=== PATIENT | male | born 1985 | race Caucasian/White ===

== ENCOUNTER 2018-02-13 14:22 | Emergency (ER) | payer BC ==
[2018-02-13 15:06] VITALS: BP 103/60
--- NOTE | 2018-02-13 15:07 | CPEKG ---
Test Reason : OPEN Blood Pressure : / mmHG Vent. Rate : 091 BPM Atrial Rate : 088 BPM P-R Int : 156 ms QRS Dur : 101 ms QT Int : 372 ms P-R-T Axes : 041 -01 030 degrees QTc Int : 458 ms Sinus rhythm Confirmed by Darrin Lin ([id number]) on 02/13/2018 3:06:23 PM Referred By: Confirmed By:Darrin Lin
[2018-02-13 15:36] LABS: PLATELET COUNT 243 10^3/uL (150-400)
--- NOTE | 2018-02-13 15:37 | EDPHY ---
H & P Stated Complaint: syncope, cough Time Seen by Provider: 02/13/18 14:34 HPI/ROS: CHIEF COMPLAINT: Chronic cough HISTORY OF PRESENT ILLNESS: The patient presents to the ED with a one-week history of a chronic cough. Today at work the patient had a physically severe coughing episode and experienced syncope. The patient denies any fever. He denies asymmetric calf pain or swelling. The patient denies pleuritic chest pain. He reports his cough is mildly productive. The patient does report some nasal congestion and rhinorrhea. The patient reports a history of asthma and remote history of pneumonia. The patient reports he saw his primary care provider who gave him a prescription for antibiotics and inhaler. He is using the inhaler twice a day. He reports no recent history of prednisone usage. REVIEW OF SYSTEMS: A comprehensive 10 point review of systems is otherwise negative aside from elements mentioned in the history of present illness. Source: Patient - Personal History Current Tetanus Diphtheria and Acellular Pertussis (TDAP): Yes - Medical/Surgical History Hx Asthma: Yes Hx Chronic Respiratory Disease: No Hx Diabetes: No Hx Cardiac Disease: No Hx Renal Disease: No Hx Cirrhosis: No Hx Alcoholism: No Hx HIV/AIDS: No Hx Splenectomy or Spleen Trauma: No Other PMH: asthma, pneumonia - Social History Smoking Status: Never smoked - Physical Exam Exam: General Appearance: Alert, no distress Eyes: Pupils equal and round no pallor or injection ENT, Mouth: Mucous membranes moist Respiratory: There are no retractions, lungs are clear to auscultation Cardiovascular: Regular rate and rhythm Gastrointestinal: Abdomen is soft and nontender, no masses, bowel sounds normal Neurological: A&O, normal motor function, normal sensory exam, normal cranial nerves Skin: Warm and dry, no rashes Musculoskeletal: Neck is supple nontender Extremities: symmetrical, full range of motion Psychiatric: Patient is oriented X 3, there is no agitation Constitutional: Initial Vital Signs Temperature (C) 36.8 C 02/13/18 14:29 Heart Rate 79 02/13/18 14:29 Respiratory Rate 20 02/13/18 14:29 Blood Pressure 126/73 H 02/13/18 14:29 O2 Sat (%) 100 02/13/18 14:29 O2 Delivery Mode Room Air Allergies/Adverse Reactions: cefaclor [From Ceclor] Allergy (Verified 02/13/18 14:27) diphenhydramine HCl [From Benadryl] Allergy (Verified 02/13/18 14:27) Home Medications: Medication Instructions Recorded Albuterol 02/13/18 Amoxicillin 02/13/18 predniSONE [prednisone 20mg (RX)] 3 tab PO DAILY #15 tab 02/13/18 Medical Decision Making - Diagnostics EKG Interpretation: EKG: Complete interpretation has been separately recorded in the [employer] archive. Summary impression: Sinus rhythm, rate 91 Imaging Results: Imaging Impressions Chest X-Ray 02/13/18 14:39 Impression: Normal chest x-ray. ED Course/Re-evaluation: The patient has a history of reactive airway disease and presents to the ED with a 1 month history of cough. The patient is currently using albuterol and antibiotics without improvement. The patient did have a syncopal episode after coughing today. The patient's chest x-ray demonstrates no evidence of an obvious pneumonia. The patient's vital signs are stable. He does have slightly decreased air movement on exam. I believe the etiology of his cough is likely secondary to his underlying reactive airway disease. I do feel that prednisone burst would be helpful for management of his symptoms. The patient will be discharged home with a prescription for prednisone. He is given the number of our on-call medicaid specialist for any unimproved symptoms. Differential Diagnosis: Differential diagnosis considered includes pneumonia, asthma, bronchitis, arrhythmia, syncope, anemia - Data Points Laboratory Results: Laboratory Results 02/13/18 15:25 02/13/18 15:25 02/13/18 02/13/18 02/13/18 15:25 15:25 14:53 WBC 6.94 10^3/uL 10^3/uL (3.80-9.50) RBC 4.59 10^6/uL 10^6/uL (4.40-6.38) Hgb 14.2 g/dL g/dL (13.7-17.5) Hct 41.4 % % (40.0-51.0) MCV 90.2 fL fL (81.5-99.8) MCH 30.9 pg pg (27.9-34.1) MCHC 34.3 g/dL g/dL (32.4-36.7) RDW 12.3 % % (11.5-15.2) Plt Count 243 10^3/uL 10^3/uL (150-400) MPV 9.1 fL fL (8.7-11.7) Neut % (Auto) 56.6 % % (39.3-74.2) Lymph % (Auto) 32.6 % % (15.0-45.0) Gillespie % (Auto) 9.1 % % (4.5-13.0) Eos % (Auto) 1.0 % % (0.6-7.6) Baso % (Auto) 0.6 % % (0.3-1.7) Nucleat RBC Rel Count 0.0 % % (0.0-0.2) Absolute Neuts (auto) 3.93 10^3/uL 10^3/uL (1.70-6.50) Absolute Lymphs (auto) 2.26 10^3/uL 10^3/uL (1.00-3.00) Absolute Monos (auto) 0.63 10^3/uL 10^3/uL (0.30-0.80) Absolute Eos (auto) 0.07 10^3/uL 10^3/uL (0.03-0.40) Absolute Basos (auto) 0.04 10^3/uL 10^3/uL (0.02-0.10) Absolute Nucleated RBC 0.00 10^3/uL 10^3/uL (0-0.01) Immature Gran % 0.1 % % (0.0-1.1) Immature Gran # 0.01 10^3/uL 10^3/uL (0.00-0.10) Sodium 137 mEq/L mEq/L (135-145) Potassium 4.0 mEq/L mEq/L (3.3-5.0) Chloride 106 mEq/L mEq/L (97-110) Carbon Dioxide 22 mEq/l mEq/l (22-31) Anion Gap 9 mEq/L mEq/L (8-16) BUN 22 mg/dL mg/dL (7-23) Creatinine 0.9 mg/dL mg/dL (0.7-1.3) Estimated GFR > 60 Glucose 103 mg/dL H mg/dL (70-100) Calcium 9.3 mg/dL mg/dL (8.5-10.4) POC Troponin I 0.01 ng/mL ng/mL (0.00-0.08) 02/13/18 02/13/18 14:50 14:50 WBC REJ RBC Not Reported Hgb Not Reported Hct Not Reported MCV Not Reported MCH Not Reported MCHC Not Reported RDW Not Reported Plt Count Not Reported MPV Not Reported Neut % (Auto) Not Reported Lymph % (Auto) Not Reported Gillespie % (Auto) Not Reported Eos % (Auto) Not Reported Baso % (Auto) Not Reported Nucleat RBC Rel Count Not Reported Absolute Neuts (auto) Not Reported Absolute Lymphs (auto) Not Reported Absolute Monos (auto) Not Reported Absolute Eos (auto) Not Reported Absolute Basos (auto) Not Reported Absolute Nucleated RBC Not Reported Immature Gran % Not Reported Immature Gran # Not Reported Sodium REJ Potassium TNP Chloride TNP Carbon Dioxide TNP Anion Gap TNP BUN TNP Creatinine TNP Estimated GFR TNP Glucose TNP Calcium TNP POC Troponin I Medications Given: Discontinued Medications Albuterol/Ipratropium (Duoneb) 3 ml IH EDNOW ONE Stop: 02/13/18 15:46 Last Admin: 02/13/18 15:53 Dose: 3 ml Prednisone (Prednisone) 60 mg PO EDNOW ONE Stop: 02/13/18 15:46 Last Admin: 02/13/18 15:53 Dose: 60 mg Point of Care Test Results: Chemistry 02/13/18 14:53 POC Troponin I 0.01 ng/mL ng/mL (0.00-0.08) Departure - Departure Disposition: Home, Routine, Self-Care Clinical Impression: Exacerbation of asthma, Syncope Condition: Good Instructions: Syncope (ED) Additional Instructions: 1. Please use use albuterol inhaler up to every 2-4 hours as needed. 2. Prednisone as directed for next 5 days. 3. Return to the ED for markedly worsening symptoms or other concerns. 4. Please follow up with a medicaid specialist you have been referred to for any unimproved symptoms. Referrals: Adolfo Peterson MD [Medical Doctor] - As per Instructions Prescriptions: predniSONE [prednisone 20mg (RX)] 3 tab PO DAILY #15 tab
[2018-02-13] MEDS ORDERED: IPRATROPIUM/ALBUTEROL 3 ML DEYVIAL IH ONE (15:45)
[2018-02-13] MEDS ORDERED: predniSONE 20 MG TAB PO ONE (15:45)
== END 2018-02-13 16:00 | disposition home or self-care (01) ==
LOC: EDUNIT#
DX: J45.901 Unspecified asthma with (acute) exacerbation (principal); R55 Syncope and collapse
CPT/HCPCS: 84484-PO; J7512